=== PATIENT | female | born 1985 | race Caucasian/White ===

== ENCOUNTER 2020-07-11 03:44 | Observation (INO) | payer OTHER, SELFPAY ==
[2020-07-11] VITALS (9 sets, daily range): BP systolic 129–148; BP diastolic 78–95; PULSE 75–87; BMI 32.8
--- NOTE | 2020-07-11 04:38 | OBADM ---
This patient, Leora Hernandez, admitted to the OB room [facility] for observation. Patient/family oriented to hospital policies and general routines including ID bracelet, bed and alarms, visiting hours, pain management, procedures, bathroom and other care routines, personal items, smoking policy, room service/diet, and visiting hours. Patient/Family are encouraged to report perceived risks to care and to ask questions if they do not understand what they are told or what they should do.
[2020-07-11 04:58] LABS: Add Urine Microscopic? YES; Appearance Urine Clear (Clear); Bacteria Urine Trace /hpf; Bilirubin Urine Negative (Negative); Blood Urine 1+ (Negative); Color Urine Yellow (Yellow); Glucose Urine UA Negative (Negative); Ketones Urine Negative (Negative); Leukocyte Esterase Ur Negative LEU/UL (Negative); Mucus Urine Rare /lpf; Nitrate Urine Negative (Negative); Protein Urine Negative (Negative); Specific Grav Ur 1.016 (1.001-1.035); Squamous Epithelial Cell Urine Many /hpf (Few); Urobilinogen Urine Negative mg/dL (<2.0)
[2020-07-11 05:26] LABS: Hemoglobin 11.8 g/dL (12.0-15.0); Mean Corpuscular HGB Conc 34.7 g/dl (32-36); Mean Corpuscular Hemoglobin 29.7 pg (26-34); Mean Corpuscular Volume 85.6 fl (80-100); Mean Platelet Volume 10.4 fl (7.4-10.4); Platelet Count Result 203 k/mm3 (150-375); Red Blood Count 3.97 M/mm3 (4.2-5.4); Red Cell Distribution Width 12.5 % (11.5-14.5); White Blood Count 10.6 K/mm3 (4.5-10.0)
[2020-07-11 05:39] LABS: Alanine Aminotransferase 23 U/L (4-35); Albumin Level 3.7 g/dL (3.5-5.1); Alkaline Phosphatase 96 U/L (38-126); Anion Gap 7 mmol/L (8-16); Aspartate Amino Transferase 25 U/L (14-36); Bilirubin,Total 0.4 mg/dL (0.2-1.3); Blood Urea Nitrogen 9 mg/dL (7-17); Calcium 9.3 mg/dL (8.4-10.2); Carbon Dioxide 21 mmol/L (22-30); Chloride 107 mmol/L (98-107); Estimated CRCL calculation 192 ml/min; Estimated Glomerular Filt Rate > 60; Glucose 105 mg/dL (65-105); Lactate Dehydrogenase 426 U/L (313-618); Potassium 3.6 mmol/L (3.4-5.0); Sodium 135 mmol/L (137-145)
[2020-07-11 06:35] LABS: Creatinine Urine 121.6 mg/dL; Total Protein Urine Random 12 mg/dL
--- NOTE | 2020-07-15 15:54 | PM.OBTRLD ---
OB - Triage/Final Diagnosis Visit Information Comments/Additional reasons for admission: I have assessed the risk for this patient, Leora Hernandez, and determined that she would benefit from observation care. Evaluation Laboratory results: Laboratory Tests 07/11/20 07/11/20 07/11/20 04:32 05:11 05:11 WBC 10.6 H RBC 3.97 L Hgb 11.8 L Hct 34.0 L MCV 85.6 MCH 29.7 MCHC 34.7 RDW 12.5 Plt Count 203 MPV 10.4 Sodium 135 L Potassium 3.6 Chloride 107 Carbon Dioxide 21 L Anion Gap 7 L BUN 9 Creatinine 0.40 L Estim Creat Clear Calc 192 Estimated GFR > 60 Glucose 105 Calcium 9.3 Total Bilirubin 0.4 AST 25 ALT 23 Alkaline Phosphatase 96 Lactate Dehydrogenase 426 Total Protein 7.0 Albumin 3.7 Urine Color Yellow Urine Appearance Clear Urine pH 6.0 Ur Specific [place] 1.016 Urine Protein Negative Urine Glucose (UA) Negative Urine Ketones Negative Ur Blood (Man) 1+ H Urine Nitrate Negative Urine Bilirubin Negative Urine Urobilinogen Negative Leukocyte Esterase Rfl Negative Urine RBC 11-20 H Urine WBC 4-6 H Ur Squamous Epith Cells Many H Urine Bacteria Trace Urine Mucus Rare U Random Total Protein Urine Creatinine 07/11/20 05:59 WBC RBC Hgb Hct MCV MCH MCHC RDW Plt Count MPV Sodium Potassium Chloride Carbon Dioxide Anion Gap BUN Creatinine Estim Creat Clear Calc Estimated GFR Glucose Calcium Total Bilirubin AST ALT Alkaline Phosphatase Lactate Dehydrogenase Total Protein Albumin Urine Color Urine Appearance Urine pH Ur Specific [place] Urine Protein Urine Glucose (UA) Urine Ketones Ur Blood (Man) Urine Nitrate Urine Bilirubin Urine Urobilinogen Leukocyte Esterase Rfl Urine RBC Urine WBC Ur Squamous Epith Cells Urine Bacteria Urine Mucus U Random Total Protein 12 Urine Creatinine 121.6 Final Diagnosis (1) Back pain affecting : Code(s): O99.891 - Other specified diseases and conditions complicating ; M54.9 - Dorsalgia, unspecified Status: Acute
== END 2020-07-11 06:35 | disposition home or self-care (01) ==
PROVIDERS: Admitting Provider Obstetrics & Gynecology; Visit Provider Obstetrics & Gynecology
DX: O99.891 Other specified diseases and conditions complicating pregnancy (principal); M54.9 Dorsalgia, unspecified; Z3A.00 Weeks of gestation of pregnancy not specified
CPT/HCPCS: 36415; 80053; 81001; 81050; 82570; 83615; 84156; 85027; G0378; G0379

== ENCOUNTER 2023-01-24 08:14 | Outpatient (CLI) | payer BC, SELFPAY ==
--- NOTE | 2023-02-12 12:28 | WPDHOMESLEEP ---
Sleep Study - Home Unattended Date of Study: 01/24/23 Ordering Provider: Paul Valles APRN Interpreting Provider: Jessi Drew, DO Home Sleep Study Type: Watch PAT Height: 1.7 m Weight: 108.862 kg Body Mass Index: 37.5 Neck Circumference (inches): 15.5 [place]: 1 Reason for Sleep Study Psychiatrist has concerns for sleep disorder Sleep History The patient is a 37-year-old female with anxiety, depression, ADHD and history of tobacco use that as a sleep study ordered for evaluation of sleep apnea. The patient rarely awakens from sleep short of breath. She occasionally awakens at night with heartburn, belching or cough. She occasionally snores but is rarely loud enough that others complain. She frequently has trouble sleeping when she has a cold. She rarely wakes up gasping for air throughout the night. She denies having breathing problems at night observed by herself or others. He constantly sweats excessively at night. She rarely has heartburn of visions or irregular heartbeats during the night. She rarely falls asleep during the day but never while driving. She denies sleep paralysis, cataplexy and hypnagogic / hypnopompic hallucinations. She denies having trouble at school or work due to sleepiness. She occasionally feels afraid of going to sleep. She occasionally has nightmares. She rarely remembers her dreams. She constantly has thoughts racing through her mind. She frequently feels sad, depressed and anxious. She occasionally has muscular tension. She occasionally notices parts of her body jerk. She rarely kicks during the night. She denies having crawling and aching feelings in her legs and denies having leg pain during the night. She denies grinding her teeth during sleep and rarely awakens with morning jaw pain. She is occasionally bothered by pain during the day but rarely awakened by pain during the night. She occasionally wakes up feeling stiff in the morning. She occasionally wakes up with sore or achy muscles. She occasionally wakes up with pain in the neck, spine and joints. She goes to bed between 10-11 p.m. on both weekdays and weekends. It takes her at least 1 hour to fall asleep. She wakes up 2-3 times throughout the night to urinate and is able fall back asleep within 15-20 minutes. She wakes up between 9 and 10:00 a.m. on both weekdays and weekends. She typically is 8-9 hours of sleep per night. She will stay in bed for 10 minutes if her waking up in the morning. She currently lives with her boyfriend and daughter. He denies consuming any caffeinated beverages within 2 hours of bedtime. She denies engaging in physical exercise before bedtime. She will watch television before falling asleep. She denies taking naps in the afternoon or evening. He consumes up to 1 caffeinated beverage per day. She quit smoking cigarettes 3 years ago. She will consume alcohol occasionally. She denies recreational drug use. [facility] Past Medical History Medical History ADHD Depression RENATA (generalized anxiety disorder) Family History Family History Sibling Depression Anxiety Mother Depression Social History Social History Smoking packs per day: 0.5 Smoking cigarettes per day: 10.0 Years smoked: 15 Smoking pack-years: 7.50 Smoking status: Former smoker Smoking end date: 10/02/20 Alcohol intake: current Alcohol use details: Socially Substance use: former Substance use type: crack/cocaine Last use: Socially in her 20s Medications Home Medications Medication Instructions Recorded Confirmed Type famotidine 20 mg tablet 20 mg PO BID 07/11/20 12/14/22 History lactobacillus combination no.8 3 1 PO DAILY 07/11/20 12/14/22 History billion cell capsule (Adult Probiotic) buspirone 7.5 mg tablet
[2023-02-12 12:34] VITALS: BMI 37.5
== END 2023-01-25 15:00 | disposition home or self-care (01) ==
PROVIDERS: Visit Provider Nurse Practitioner Family
DX: R06.83 Snoring (principal); G47.9 Sleep disorder, unspecified
CPT/HCPCS: 36415; 82607; 82728; 83540; 83550; 84443; 95800

== ENCOUNTER 2023-01-24 13:14 | Outpatient (CLI) | payer BC, SELFPAY ==
[2023-01-24 15:39] LABS: Thyroid Stimulating Hormone 0.343 uIU/mL (0.465-4.680)
[2023-01-24 16:07] LABS: Iron 141 ug/dL (37-170)
[2023-01-24 16:16] LABS: Percent Iron Saturation 46 % (20-50)
== END 2023-01-24 13:15 | disposition home or self-care (01) ==
LOC: ANHLAB 13:15
PROVIDERS: Visit Provider Nurse Practitioner Family
DX: R53.83 Other fatigue (principal)
CPT/HCPCS: 36415; 82607; 82728; 83540; 83550; 84443

== ENCOUNTER 2023-03-28 08:21 | Outpatient (CLI) | payer BC, SELFPAY ==
--- NOTE | 2023-04-17 14:49 | WPDSLEEPSTUD ---
Sleep Study Date of Study: 03/28/23 Ordering Provider: Paul Valles APRN Interpreting Physician: Jessi Drew DO Sleep Study Type: Polysomnogram Height: 1.7 m Weight: 100.244 kg Body Mass Index: 34.6 Neck Circumference (inches): 15.5 [place]: 1 Reason for Sleep Study The patient had a WatchPAT home sleep test on 01/24/2023 that showed an overall AHI of 2.3. Difficult falling asleep. Waking up 2-3x/night to urinate. Sleep History The patient is a 37-year-old female with anxiety, depression, ADHD and history of tobacco use that as a sleep study ordered for evaluation of sleep apnea.? The patient rarely awakens from sleep short of breath.? She occasionally awakens at night with heartburn, belching or cough.? She occasionally snores but is rarely loud enough that others complain.? She frequently has trouble sleeping when she has a cold.? She rarely wakes up gasping for air throughout the night.? She denies having breathing problems at night observed by herself or others.? He constantly sweats excessively at night.? She rarely has heartburn of visions or irregular heartbeats during the night.? She rarely falls asleep during the day but never while driving.? She denies sleep paralysis, cataplexy and hypnagogic / hypnopompic hallucinations.? She denies having trouble at school or work due to sleepiness.? She occasionally feels afraid of going to sleep.? She occasionally has nightmares.? She rarely remembers her dreams.? She constantly has thoughts racing through her mind.? She frequently feels sad, depressed and anxious.? She occasionally has muscular tension.? She occasionally notices parts of her body jerk.? She rarely kicks during the night.? She denies having crawling and aching feelings in her legs and denies having leg pain during the night.? She denies grinding her teeth during sleep and rarely awakens with morning jaw pain.? She is occasionally bothered by pain during the day but rarely awakened by pain during the night.? She occasionally wakes up feeling stiff in the morning.? She occasionally wakes up with sore or achy muscles.? She occasionally wakes up with pain in the neck, spine and joints.? She goes to bed between 10-11 p.m. on both weekdays and weekends.? It takes her at least 1 hour to fall asleep.? She wakes up 2-3 times throughout the night to urinate and is able fall back asleep within 15-20 minutes.? She wakes up between 9 and 10:00 a.m. on both weekdays and weekends.? She typically is 8-9 hours of sleep per night.? She will stay in bed for 10 minutes if her waking up in the morning.? She currently lives with her boyfriend and daughter.? He denies consuming any caffeinated beverages within 2 hours of bedtime.? She denies engaging in physical exercise before bedtime.? She will watch television before falling asleep.? She denies taking naps in the afternoon or evening.? He consumes up to 1 caffeinated beverage per day.? She quit smoking cigarettes 3 years ago.? She will consume alcohol occasionally.? She denies recreational drug use. [facility] Past Medical History Medical History ADHD Depression RENATA (generalized anxiety disorder) Family History Family History Sibling Depression Anxiety Mother Depression Social History Social History Smoking packs per day: 0.5 Smoking cigarettes per day: 10.0 Years smoked: 15 Smoking pack-years: 7.50 Smoking status: Former smoker Smoking end date: 10/02/20 Alcohol intake: current Alcohol use details: Socially Substance use: former Substance use type: crack/cocaine Last use: Socially in her 20s Medications Home Medications Medication Instructions Recorded Confirmed Type famotidine 20 mg tablet 20 mg PO BID 07/11/20 12/14/22 History lactobacillus combination no.8 3 1 PO DAILY 07/11/2012/14
[2023-04-17 14:57] VITALS: BMI 34.6
== END 2023-03-29 06:31 | disposition hospice, home (50) ==
LOC: ANHCSM 08:23
PROVIDERS: Visit Provider Nurse Practitioner Family
DX: R06.83 Snoring (principal); G47.00 Insomnia, unspecified
CPT/HCPCS: 36415; 84443; 95810

== ENCOUNTER 2023-03-29 06:44 | Outpatient (CLI) | payer BC, SELFPAY | END 2023-03-29 06:45 | disposition home or self-care (01) | PROVIDERS: Visit Provider Nurse Practitioner Family | DX: R79.89 Other specified abnormal findings of blood chemistry (principal) | CPT/HCPCS: 36415; 84443 ==

== ENCOUNTER 2024-04-05 14:01 | Emergency (ER) | payer BC, SELFPAY ==
--- NOTE | ~2024-04-05 | CT_ITS ---
EXAMINATION: CT abdomen pelvis wo/w con DATE: 04/05/2024 16:12 INDICATION: Abdominal pain; appendicitis versus urolithiasis TECHNIQUE: Computed tomography (CT) of the abdomen and pelvis was performed without intravenous contr ast. Automated exposure control and iterative reconstruction technique were employed. Exam dose: 255 4.97 mGy-cm total exam DLP. COMPARISON: None. FINDINGS: Minimal calcified pulmonary granulomas. The lung bases are clear of infiltrate or consolida tion. There are multiple splenic calcified granulomas. Normal heart size. No pericardial or pleural effusion. Small sliding hiatal hernia. The liver, gallbladder, bile ducts, pancreas, pancreatic duct are normal. Normal splenic size. Normal morphology of the adrenal glands. Right nephromegaly with right perinephric and periureteral stranding, moderate right hydroureteroneph rosis, with a very small right ureterovesical calculus. Approximately 2.3 mm nonobstructing mid right renal calculus. Probable left parapelvic renal cyst; otherwise no left renal mass lesion or left urinary tract calcul us or hydroureteronephrosis. The urinary bladder is unremarkable otherwise. Normal caliber of the abdominal aorta. No intraperitoneal or retroperitoneal or pelvic mass lesion or adenopathy or ascites. Uterus and adnexal areas are unremarkable. Normal appendix. No evidence of appendicitis. No bowel obstruction or intraperitoneal free air. Small fat-containing umbilical hernia. No suspicious osteolytic or osteoblastic lesions are noted. IMPRESSION: Very small right ureterovesical junction calculus, causing moderate right hydroureterone phrosis, prominent right perinephric and periureteral stranding 2.3 mm nonobstructing mid right renal calculus Small sliding hiatal hernia Old granulomatous disease Normal appendix Reviewed, dictated and finalized at [facility]. Reviewed, dictated and finalized at [facility]. IMPRESSION: Very small right ureterovesical junction calculus, causing moderat e right hydroureteronephrosis, prominent right perinephric and periureteral str anding 2.3 mm nonobstructing mid right renal calculus Small sliding hiatal hernia Old granulomatous disease Normal appendix
--- NOTE | ~2024-04-05 | XR_ITS ---
XR abdomen/kub 1V DATE: 04/05/2024 17:19 INDICATION: Right ureterovesical junction stone TECHNIQUE: Portable supine AP views COMPARISON: None FINDINGS: Moderate right hydronephrosis and hydroureter. The very distal right ureter is obscured by contrast material the Urinary bladder No left hydronephrosis. The psoas shadows are intact. No visceromegaly other than mild right nephromegaly due to obstruction is evident. No significant abnormal calcification is noted. IMPRESSION: Distal right ureteral obstruction with moderately prominent right hydroureteronephrosis Reviewed, dictated and finalized at [facility]. Reviewed, dictated and finalized at [facility]. IMPRESSION: Distal right ureteral obstruction with moderately prominent right h ydroureteronephrosis
[2024-04-05 14:49] LABS: BEDSIDEPREGUCG Negative (Negative)
[2024-04-05 14:55] LABS: Basophils Percent Auto 0.5 % (0.2-1.2); Eosinophils Percent Auto 0.1 % (0-4.4); Hematocrit 38.7 % (37.0-47.0); Hemoglobin 13.3 g/dL (12.0-15.0); Immature Granulocyte Absolute 0.04 K/mm3 (0.00-0.031); Immature Granulocyte Percent A 0.5 % (0-0.5); Lymphocytes Absolute Auto 1.72 K/mm3 (0.9-3.2); Lymphocytes Percent Auto 19.4 % (18.3-44.2); Mean Corpuscular HGB Conc 34.4 g/dl (32-36); Mean Corpuscular Hemoglobin 29.6 pg (26-34); Mean Corpuscular Volume 86.2 fl (80-100); Mean Platelet Volume 10.7 fl (7.4-10.4); Monocytes Absolute Auto 0.5 K/mm3 (0.1-0.6); Monocytes Percent Auto 5.2 % (2.6-8.5); Neutrophils Absolute Auto 6.6 K/mm3 (1.3-6.7); Neutrophils Percent Auto 74.3 % (45.5-73.1); Platelet Count Result 264 k/mm3 (150-375); Red Blood Count 4.49 M/mm3 (4.2-5.4); Red Cell Distribution Width 12.4 % (11.5-14.5); White Blood Count 8.9 K/mm3 (4.5-10.0)
[2024-04-05 15:03] LABS: Add Urine Microscopic? YES; Appearance Urine Cloudy (Clear); Bacteria Urine None Seen /hpf; Bilirubin Urine Negative (Negative); Blood Urine 3+ (Negative); Color Urine Yellow (Yellow); Glucose Urine UA Negative (Negative); Ketones Urine Trace mg/dL (Negative); Leukocyte Esterase Ur 1+ LEU/UL (Negative); Nitrate Urine Negative (Negative); Non Pathogenic Casts 0-2; Protein Urine 1+ mg/dL (Negative); RBC Urine 21-50 /hpf (0-2); Squamous Epithelial Cell Urine Occasional /hpf (Few); Urobilinogen Urine 0.2 mg/dL (<2.0); WBC Urine 21-50 /hpf (0-3)
--- NOTE | 2024-04-05 15:06 | ED.ABDPAIN ---
HPI - Abdominal Pain General Chief Complaint: Abdominal Pain Stated Complaint: abd pain Time Seen by Provider: 04/05/24 14:22 History of Present Illness HPI narrative: 38-year-old female presents to the emergency department for abdominal pain and right flank pain since this morning. Patient states the pain is colicky in nature. She has never had pain like this before. She points to her periumbilical region and right upper abdomen as well as right flank describing the pain. She reports associated nausea but denies fever, vomiting, dysuria or hematuria. Denies history of kidney stones. Prior abdominal surgery includes a . Related Data Home Medications Medication Instructions Recorded Confirmed famotidine 20 mg tablet 20 mg PO BID 07/11/20 12/14/22 lactobacillus combination no.8 3 1 PO DAILY 07/11/20 12/14/22 billion cell capsule (Adult Probiotic) buspirone 7.5 mg tablet 7.5 mg PO TID 12/14/22 12/14/22 dextroamphetamine-amphetamine 20 20 mg PO TID 12/14/22 12/14/22 mg tablet (Adderall) lamotrigine 100 mg tablet 100 mg PO DAILY 12/14/22 12/14/22 sertraline 100 mg tablet (Zoloft) 50 mg PO DAILY 12/14/22 12/14/22 Allergies Allergy/AdvReac Type Severity Reaction Status Date / Time No Known Allergies Allergy Mild Verified 04/05/24 14:05 Review of Systems Review of Systems: All systems reviewed & are unremarkable except as noted in HPI and below PMFSH Past Medical History Medical History ADHD Depression RENATA (generalized anxiety disorder) Family History Family History Sibling Depression Anxiety Mother Depression Social History Social History Smoking packs per day: 0.5 Smoking cigarettes per day: 10.0 Years smoked: 15 Smoking pack-years: 7.50 Smoking status: Former smoker Smoking end date: 10/02/20 Alcohol intake: current Alcohol use details: Socially Substance use: former Substance use type: crack/cocaine Last use: Socially in her 20s Exam Narrative: GENERAL: Well-appearing, well-nourished, and in no acute distress. HEAD: Normocephalic, atraumatic. EYES: PERRLA and EOMI. ENT: Nares clear, no rhinorrhea or epistaxis. Mucous membranes moist. NECK: Supple. CHEST: Clear to auscultation. No respiratory distress. HEART: Regular rate and rhythm. No murmur heard. ABDOMEN: Normoactive bowel sounds. Abdomen soft with tenderness in the periumbilical region. No rebound, guarding or rigidity. Right-sided CVA tenderness. EXTREMITIES: Normal range of motion. No edema. SKIN: Warm, dry, no rash. NEURO: No focal deficits. Alert and oriented x3 Course Vital Signs Vital signs: Vital Signs Pulse Rate 74 04/05/24 15:39 Respiratory Rate 18 04/05/24 15:39 Blood Pressure 164/100 H 04/05/24 15:39 Pulse Oximetry 100 04/05/24 15:39 Temperature 97.8 F 04/05/24 18:13 Pulse Rate 78 04/05/24 18:13 Respiratory Rate 18 04/05/24 18:13 Blood Pressure 158/78 H 04/05/24 18:13 Pulse Oximetry 100 04/05/24 18:13 MDM - Abdominal Pain MDM Narrative Medical decision making narrative: 38-year-old female presents to the emergency department for abdominal pain and flank pain that started this morning. See HPI for further history. vitals with elevated blood pressure, otherwise unremarkable. She is afebrile nontoxic appearing. Exam is significant for the above. CBC without leukocytosis or anemia. Chemistries with elevated creatinine of 1.2. Urinalysis reveals hematuria and 21-50 rbc's 1+ leuk esterase. is negative. CT with and without contrast obtained which shows very small right UVJ calculus causing moderate right hydroureteronephrosis and prominent right perinephric and periureteral stranding. There is a 2.3 mm nonobstructive right mid right renal calculus and a normal appendix. Patient was updated on the workup. She received IV fluids, Zofran and morphine with improvement. I discussed the case with urologist on-call, Dr. Keys, who advises the patient be discharged home if her pain is improved. He recommends Keflex to cover for concurrent UTI and states he will follow-up closely with the patient on Sunday. The patient feels safe going home states her pain is much improved. Will provide Keflex, Zofran, [place] and Flomax. She was also given Dr. Keys' office number to contact Sunday afternoon she has not heard from him. I discussed strict ED return precautions. She is agreeable with the plan verbalized understanding. Discharged in stable condition. Lab Data 04/05/24 14:43 04/05/24 14:43 Labs: Lab Results 04/05/24 04/05/24 Range/Units 14:43 14:48 WBC 8.9 (4.5-10.0) K/mm3 RBC 4.49 (4.2-5.4) M/mm3 Hgb 13.3 (12.0-15.0) g/dL Hct 38.7 (37.0-47.0) % MCV 86.2 (80-100) fl MCH 29.6 (26-34) pg MCHC 34.4 (32-36) g/dl RDW 12.4 (11.5-14.5) % Plt Count 264 (150-375) k/mm3 MPV 10.7 H (7.4-10.4) fl Immature Gran % (Auto) 0.5 (0-0.5) % Neut % (Auto) 74.3 H (45.5-73.1) % Lymph % (Auto) 19.4 (18.3-44.2) % [place] % (Auto) 5.2 (2.6-8.5) % Eos % (Auto) 0.1 (0-4.4) % Baso % (Auto) 0.5 (0.2-1.2) % Lymph # (Auto) 1.72 (0.9-3.2) K/mm3 [place] # (Auto) 0.5 (0.1-0.6) K/mm3 Eos # (Auto) 0.0 (0-0.3) K/mm3 Baso # (Auto) 0.0 (0.0-0.1) K/mm3 Abs Immat Gran (auto) 0.04 H (0.00-0.031) K/mm3 Absolute Neuts (auto) 6.6 (1.3-6.7) K/mm3 Absolute Nucleated RBC 0.000 (0.0-0.012) K/mm3 Nucleated RBC % 0.0 (0.0-0.2) % Sodium 139 (137-145) mmol/L Potassium 4.1 (3.4-5.0) mmol/L Chloride 103 (98-107) mmol/L Carbon Dioxide 26 (22-30) mmol/L Anion Gap 10 (4-12) mmol/L BUN 11 (7-17) mg/dL Creatinine 1.20 H (0.7-1.0) mg/dL Estim Creat Clear Calc 75 ml/min Estimated GFR 51 L (59 - ) Glucose 141 H (65-110) mg/dL Calcium 9.5 (8.4-10.2) mg/dL Total Bilirubin 1.4 H (0.2-1.3) mg/dL AST 29 (14-36) U/L ALT 38 H (6-35) U/L Alkaline Phosphatase 57 (38-126) U/L Total Protein 8.0 (6.3-8.2) g/dL Albumin 4.4 (3.5-5.1) g/dL Lipase 51 (23-300) U/L Urine Color Yellow (Yellow) Urine Appearance Cloudy H (Clear) Urine pH 6.0 (5.0-9.0) Ur Specific [place] 1.040 H (1.001-1.035) Urine Protein 1+ H (Negative) mg/dL Urine Glucose (UA) Negative (Negative) mg/dL Urine Ketones Trace H (Negative) mg/dL Ur Blood (Man) 3+ H (Negative) Urine Nitrate Negative (Negative) Urine Bilirubin Negative (Negative) Urine Urobilinogen 0.2 (<2.0) mg/dL Leukocyte Esterase Rfl 1+ H (Negative) FIDEL/UL Urine RBC 21-50 H (0-2) /hpf Urine WBC 21-50 H (0-3) /hpf Ur Squamous Epith Cells Occasional (Few) /hpf Urine Bacteria None seen /hpf Urine Casts 0-2 POC Urine HCG, Qual Negative (Negative) Imaging Data Radiologist's impression: ITS Impressions Abdomen/Pelvis CT 04/05/24 16:18 IMPRESSION: Very small right ureterovesical junction calculus, causing moderate right hydroureteronephrosis, prominent right perinephric and periureteral stranding 2.3 mm nonobstructing mid right renal calculus Small sliding hiatal hernia Old granulomatous disease Normal appendix Abdomen X-Ray 04/05/24 17:24 IMPRESSION: Distal right ureteral obstruction with moderately prominent right hydroureteronephrosis Discharge Plan Discharge Clinical Impression: Right ureteral stone Patient Disposition: Home, Self-Care Condition: Stable Instructions: Antibiotic Form, Ureteral Stones (ED) Additional Instructions: You were evaluated in the emergency department for flank and abdominal pain. Your found have a small right-sided stone in your ureter an a kidney stone as discussed. Please take the medications as directed and follow-up closely with the urologist. If you do not hear from his office by Sunday, contact the office for close follow-up. Return to the emergency department if you develop a fever, inability to urinate, uncontrollable pain, or other concerning symptoms. Prescriptions: New cephalexin 500 mg capsule 500 mg PO Q6H Qty: 28 0RF ondansetron 4 mg tablet,disintegrating 4 mg PO Q8H Qty: 14 0RF hydrocodone-acetaminophen 5-325 mg tablet 1 tablet PO Q8H PRN (Reason: pain) Qty: 14 0RF tamsulosin [Flomax] 0.4 mg capsule 0.4 mg PO HS Qty: 14 0RF No Action buspirone 7.5 mg tablet 7.5 mg PO TID lamotrigine 100 mg tablet 100 mg PO DAILY sertraline [Zoloft] 100 mg tablet 50 mg PO DAILY dextroamphetamine-amphetamine [Adderall] 20 mg tablet 20 mg PO TID Rx Instructions: administer doses at least 4-6 hours apart famotidine 20 mg Tablet 20 mg PO BID Adult Probiotic 3 billion cell Capsule 1 PO DAILY eszopiclone 3 mg tablet 3 mg PO QHS Qty: 1 0RF Rx Instructions: Take tablet with you to sleep center for sleep study Follow-up/Referrals: Suzette,DO Angel [Primary Care Provider] - Joshua Keys MD [Physician] - 1 Day
[2024-04-05 15:12] LABS: Alanine Aminotransferase 38 U/L (6-35); Albumin Level 4.4 g/dL (3.5-5.1); Alkaline Phosphatase 57 U/L (38-126); Anion Gap 10 mmol/L (4-12); Aspartate Amino Transferase 29 U/L (14-36); Bilirubin,Total 1.4 mg/dL (0.2-1.3); Blood Urea Nitrogen 11 mg/dL (7-17); Calcium 9.5 mg/dL (8.4-10.2); Carbon Dioxide 26 mmol/L (22-30); Chloride 103 mmol/L (98-107); Estimated CRCL calculation 75 ml/min; Estimated Glomerular Filt Rate 51; Glucose 141 mg/dL (65-110); Lipase 51 U/L (23-300); Potassium 4.1 mmol/L (3.4-5.0); Sodium 139 mmol/L (137-145)
[2024-04-05] MEDS: ONDANSETRON INJ 4 MG/2 ML VIAL IV PUSH (15:36)
[2024-04-05] MEDS: SODIUM CHLORIDE 0.9% IV 1,000 ML 999 ML IV CONT (15:36)
[2024-04-05 15:39] VITALS: BP 164/100; PULSE 74; RESP 18; O2SAT 100
[2024-04-05] MEDS: MORPHINE SULFATE (*CRX) 4 MG/ML INJ IV PUSH (17:11)
[2024-04-05 17:28] VITALS: BP 151/84; PULSE 65; RESP 18; TEMP 36.6; O2SAT 100
[2024-04-05] MEDS: KETOROLAC 15 MG/ML VIAL (*BKC) IV PUSH (18:05)
[2024-04-05] MEDS: CEPHALEXIN 500 MG CAPSULE PO (18:12)
[2024-04-05 18:13] VITALS: BP 158/78; PULSE 78; RESP 18; TEMP 36.6; O2SAT 100
== END 2024-04-05 18:15 | disposition home or self-care (01) ==
PROVIDERS: Emergency Provider Physician Assistant; PCP Student in an Organized Health Care Education/Training Program
DX: F32.A Depression, unspecified (principal); F41.1 Generalized anxiety disorder; F90.9 Attention-deficit hyperactivity disorder, unspecified type; Z79.899 Other long term (current) drug therapy
CPT/HCPCS: 36415; 74018; 74178; 80053; 81001; 81025; 83690; 85025; 87086; 96361; 96374; 96375; 99284; A9270; J1885; J2270; J2405; J7030; Q9967